=== PATIENT | male | born 1950 | race Caucasian/White ===

== ENCOUNTER → 2017-12-14 09:02 | Outpatient (CLI) | payer MEDICARE, OTHER, SELFPAY ==
[2017-12-14 10:23] LABS: Hemoglobin A1C% w Est Avg Glu 8.4 % (4.0-6.0)
[2017-12-14 10:32] LABS: BUN Creatinine Ratio 25.8 (6-22); Blood Urea Nitrogen 31 mg/dL (9-20); Calcium 10.1 mg/dL (8.4-10.2); Carbon Dioxide 29 mmol/L (22-32); Chloride 100 mmol/L (98-107); Cholesterol 173 mg/dL (140-199); Estimated Glomerular Filt Rate > 60.0 mL/min (>60); Glucose 146 mg/dL (80-110); HDL Cholesterol 44 mg/dL (40-60); HEMOLYSIS < 15 (0-50); LDL Cholesterol Calculated 85 mg/dL (<100); Potassium 4.4 mmol/L (3.4-5.1); Sodium 142 mmol/L (137-145); Triglycerides 222 mg/dL (35-150)
[2017-12-14 10:40] LABS: Creatinine Urine Random 103.9 mg/dL
[2017-12-14 10:59] LABS: Microalbumi Creatinin Ratio Ur 472.5 ug/mg CR (<30); Microalbumin Urine Random 49.1 mg/dL (0-1.6)
== END ==
PROVIDERS: PCP Family Medicine; Visit Provider Family Medicine
DX: E11.65 Type 2 diabetes mellitus with hyperglycemia (principal); I10 Essential (primary) hypertension; Z79.4 Long term (current) use of insulin
CPT/HCPCS: 36415; 80048; 80061; 82043; 82570; 83036

== ENCOUNTER → 2018-03-22 09:33 | Outpatient (CLI) | payer MEDICARE, OTHER, SELFPAY ==
[2018-03-22 10:03] LABS: Add Manual Diff / Slide Review NO; Basophils Percent Auto 0.7 % (0-2); Eosinophils Percent Auto 7.8 % (2-4); Hematocrit 44.2 % (41-53); Hemoglobin 15.2 g/dL (13.5-17.5); Lymphocytes Percent Auto 31.1 % (25-40); Mean Corpuscular HGB Conc 34.4 % (30-36); Mean Corpuscular Hemoglobin 31.2 PG (26-34); Mean Corpuscular Volume 90.8 fL (80-100); Monocytes Percent Auto 9.8 % (3-14); Neutrophils Absolute Auto 3000 /uL (3000-5900); Neutrophils Percent Auto 50.6 % (50-75); Platelet Count 130 X10^3/uL (150-400); Red Blood Cell Count 4.87 X10^6/uL (4.5-5.9); Red Cell Distribution Width 13.2 % (11.6-14.8); White Blood Cell Count 5.8 X10^3/uL (4.5-11.0)
[2018-03-22 10:39] LABS: Alanine Aminotransferase 53 IU/L (21-72); Albumin 4.3 g/dL (3.5-5.0); Albumin Globulin Ratio 1.4 (1.0-2.8); Alkaline Phosphatase 90 U/L (38-126); Aspartate Aminotransferase 36 IU/L (17-59); Blood Urea Nitrogen 20 mg/dL (9-20); Calcium 9.9 mg/dL (8.4-10.2); Carbon Dioxide 30 mmol/L (22-32); Chloride 105 mmol/L (98-107); Cholesterol 145 mg/dL (140-199); Estimated Glomerular Filt Rate > 60.0 mL/min (>60); Globulin 3.1 g/dL (1.7-4.1); Glucose 138 mg/dL (80-110); HDL Cholesterol 41 mg/dL (40-60); HEMOLYSIS < 15 (0-50); LDL Cholesterol Calculated 60 mg/dL (<100); Potassium 4.9 mmol/L (3.4-5.1); Sodium 145 mmol/L (137-145); Total Protein 7.4 g/dL (6.3-8.2); Triglycerides 222 mg/dL (35-150)
[2018-03-22 10:40] LABS: Creatinine Urine Random 106.7 mg/dL
[2018-03-22 11:13] LABS: Microalbumi Creatinin Ratio Ur 918.4 ug/mg CR (<30)
== END ==
PROVIDERS: PCP Family Medicine; Visit Provider Family Medicine
DX: E11.65 Type 2 diabetes mellitus with hyperglycemia (principal); I10 Essential (primary) hypertension; Z79.4 Long term (current) use of insulin
CPT/HCPCS: 36415; 80053; 80061; 82043; 82570; 83036; 85025

== ENCOUNTER → 2018-07-01 13:24 | Outpatient (CLI) | payer MEDICARE, OTHER, SELFPAY ==
[2018-07-01 13:56] LABS: Hemoglobin A1C% w Est Avg Glu 9.3 % (4.0-6.0)
== END ==
PROVIDERS: PCP Family Medicine; Visit Provider Family Medicine
DX: E11.65 Type 2 diabetes mellitus with hyperglycemia (principal); Z79.4 Long term (current) use of insulin
CPT/HCPCS: 36415; 83036

== ENCOUNTER → 2018-09-21 11:05 | Outpatient (CLI) | payer MEDICARE, OTHER, SELFPAY ==
[2018-09-21 12:01] LABS: Hemoglobin A1C% w Est Avg Glu 7.2 % (4.0-6.0)
== END ==
PROVIDERS: PCP Family Medicine; Visit Provider Family Medicine
DX: E11.65 Type 2 diabetes mellitus with hyperglycemia (principal); Z79.4 Long term (current) use of insulin
CPT/HCPCS: 36415; 83036

== ENCOUNTER → 2018-12-17 09:04 | Outpatient (CLI) | payer MEDICARE, OTHER, SELFPAY ==
[2018-12-17 10:37] LABS: BUN Creatinine Ratio 20.9 (6-22); Blood Urea Nitrogen 23 mg/dL (9-20); Calcium 9.7 mg/dL (8.4-10.2); Carbon Dioxide 28 mmol/L (22-32); Chloride 105 mmol/L (98-107); Cholesterol 149 mg/dL (140-199); Estimated Glomerular Filt Rate > 60.0 mL/min (>60); Glucose 161 mg/dL (80-110); HDL Cholesterol 35 mg/dL (40-60); HEMOLYSIS < 15 (0-50); LDL Cholesterol Calculated 60 mg/dL (<100); Potassium 4.6 mmol/L (3.4-5.1); Sodium 141 mmol/L (137-145); Triglycerides 270 mg/dL (35-150)
== END ==
PROVIDERS: PCP Family Medicine; Visit Provider Family Medicine
DX: E11.65 Type 2 diabetes mellitus with hyperglycemia (principal); Z79.4 Long term (current) use of insulin
CPT/HCPCS: 36415; 80048; 80061; 83036

== ENCOUNTER → 2019-04-15 11:17 | Outpatient (CLI) | payer MEDICARE, OTHER, SELFPAY ==
[2019-04-15 12:24] LABS: Hemoglobin A1C% w Est Avg Glu 8.4 % (4.0-6.0)
[2019-04-15 15:09] LABS: Creatinine Urine Random 80.9 mg/dL
[2019-04-15 15:59] LABS: Microalbumin Urine Random 166.5 mg/dL (0-1.6)
== END ==
PROVIDERS: PCP Family Medicine; Visit Provider Family Medicine
DX: E11.65 Type 2 diabetes mellitus with hyperglycemia (principal); Z79.4 Long term (current) use of insulin; I10 Essential (primary) hypertension
CPT/HCPCS: 36415; 82043; 82570; 83036

== ENCOUNTER → 2019-07-08 09:55 | Outpatient (CLI) | payer MEDICARE, OTHER, SELFPAY ==
[2019-07-08 10:32] LABS: Hemoglobin A1C% w Est Avg Glu 7.8 % (4.0-6.0)
[2019-07-08 11:00] LABS: Alanine Aminotransferase 45 IU/L (<50); Albumin 4.2 g/dL (3.5-5.0); Albumin Globulin Ratio 1.4 (1.0-2.8); Alkaline Phosphatase 89 U/L (38-126); Aspartate Aminotransferase 38 IU/L (17-59); BUN Creatinine Ratio 17.9 (6-22); Bilirubin Total 0.8 mg/dL (0.2-1.3); Blood Urea Nitrogen 25 mg/dL (9-20); Calcium 10.1 mg/dL (8.4-10.2); Carbon Dioxide 30 mmol/L (22-32); Chloride 101 mmol/L (98-107); Cholesterol 160 mg/dL (140-199); Estimated Glomerular Filt Rate 50.5 mL/min (>60); Glucose 117 mg/dL (80-110); HDL Cholesterol 37 mg/dL (40-60); HEMOLYSIS < 15 (0-50); LDL Cholesterol Calculated 79 mg/dL (<100); Potassium 4.2 mmol/L (3.4-5.1); Sodium 139 mmol/L (137-145); Total Protein 7.2 g/dL (6.3-8.2); Triglycerides 220 mg/dL (35-150)
[2019-07-08 11:02] LABS: Creatinine Urine Random 143.1 mg/dL
[2019-07-08 11:48] LABS: Microalbumi Creatinin Ratio Ur 1294.8 ug/mg CR (<30)
[2019-07-08 11:49] LABS: Microalbumin Urine Random 185.3 mg/dL (0-1.6)
== END ==
PROVIDERS: PCP Family Medicine; Visit Provider Family Medicine
DX: E11.65 Type 2 diabetes mellitus with hyperglycemia (principal); I10 Essential (primary) hypertension; Z79.4 Long term (current) use of insulin
CPT/HCPCS: 36415; 80053; 80061; 82043; 82570; 83036

== ENCOUNTER 2019-08-04 12:26 | Emergency (ER) | payer MEDICARE, OTHER, SELFPAY ==
[2019-08-04 12:38] VITALS: BP 188/89; PULSE 92; RESP 16; TEMP 36.3; O2SAT 98; BMI 32.8
--- NOTE | 2019-08-04 12:40 | PC.NURSE ---
report given to dr diggs , no new order at this time/
[2019-08-04 13:00] VITALS: BP 180/85; PULSE 90; RESP 23; O2SAT 94
--- NOTE | 2019-08-04 13:01 | ED_ITS ---
HPI - Neuro Symptoms/Deficit General Chief Complaint: Neuro Symptoms/Deficit Stated Complaint: Left side face dropping, lost taste. Time Seen by Provider: 08/04/19 13:01 Source: patient and family () Mode of arrival: Ambulatory Limitations: no limitations History of Present Illness HPI Narrative: This is a 68-year-old male who comes to the emergency department with complaint of facial droop of his right upper and lower face. Patient states it started 2 days ago. It has gotten slightly worse. He states that he has noticed more tearing with his right eye. He states that he has been able to talk he has been able to swallow but he notices that his face does not move properly on the right. Patient denies headache, he denies vision change. He denies any neck pain, no chest pain or shortness of breath. No nausea, no vomiting no other GI or urinary symptoms. He denies any weakness, numbness or tingling in his face or extremities. He has not had any issues with gait or movement. He does have a history of insulin dependent diabetes, he is on medication for blood pressure, cholesterol and a daily aspirin. Patient did have an excision of the left side of his face for skin cancer in the last johanny ral months but no other prior surgeries. He denies tobacco, 1 alcoholic drink monthly and no illicit. On Anticoagulants: Yes Related Data Home Medications Medication Instructions Recorded Confirmed aspirin 81 mg PO DAILY #0 03/25/17 08/04/19 insulin degludec 200 unit/mL (3 155 unit SUBCUT QPM package 07/12/19 08/04/19 mL) subcutaneous pen atorvastatin 40 mg PO QPM 08/04/19 08/04/19 hydrochlorothiazide 25 mg PO DAILY 08/04/19 08/04/19 Previous Rx's Medication Instructions Recorded lisinopril 40 mg tablet 40 mg PO QDAY #90 tab 09/24/18 sitagliptin 50 mg-metformin 1,000 1 tab PO BID #180 tab 09/24/18 mg tablet prednisone See Rx Instructions .ROUTE 08/04/19 .COMPLEX #45 each valacyclovir 1,000 mg PO BID #14 tab 08/04/19 Allergies Allergy/AdvReac Type Severity Reaction Status Date / Time No Known Allergies Allergy Uncoded 08/04/19 12:38 Review of Systems Review of Systems ROS Unobtainable: All systems reviewed & are unremarkable except as noted in HPI and below Patient History Medical History Chicken pox (Resolved ~1976) Diabetes mellitus (Chronic 2011) History of squamous cell carcinoma of skin (Acute) Hypertension (Chronic 2011) Mumps (Resolved ~1976) Tinnitus (Chronic 2011) Surgical History No history of previous surgery (Resolved 02/2017) Family History (Updated 12/09/17 @ 17:18 by Jaylyn Lopez) Father Hypertension High cholesterol Diabetes mellitus Social History marital status: household members: spouse pets and animals: Yes education level: master's degree pa[place]/alevism: restorationism leisure activities: fishing other: outdoors seatbelt use: always helmet use: No water heater temp set < 120 deg: Yes working smoke detector in home: Yes fire extinguisher in home: Yes carbon monox detector in home: Yes firearms in home: Yes do you feel safe at home: Yes Smoking Status: Former smoker alcohol intake: current during the past year weight has: remained stable well-balanced diet: daily or most days daily servings fruits/ve-1 caffeine: Yes frequency: does not exercise Smoking Status: Former smoker Substance Use Type: does not use Exam Narrative Exam Narrative: GEN: well nourished, well appearing male, alert and oriented x 3, patient appears to be in mild distress. HEENT: Atraumatic, pupils are equal round reactive to light, extraocular movements are intact, nares are clear, Throat is clear without any exudates, erythema, tonsillar enlargement or uvular deviation, patient has droop of the right face and nasal labial folds. He also has decreased movement of the right forehead he is able to close his eye but does have some difficulty. No dysarthria noted. HEART: Regular rate and rhythm without murmur, clicks, rubs. LUNGS:Lungs clear to auscultation, no wheezes, rales, crackles, chest moves symmetrically ABD:bowel sounds normal, soft, non-tender, no guarding, rebound, rigidity, no masses noted, no hepatosplenomegaly :No CVA tenderness MSCL: Non-tender, no muscle atrophy, muscles strength 5/5 upper and lower extremities, full range of motion, normal gait NEURO:CN 2-12 intact, sensation normal, finger nose finger test normal, heel oneill test normal, romberg normal SKIN: No rash, no vesicles or skin changes. Initial Vital Signs Initial Vital Signs: Vital Signs Temperature 97.4 F L 08/04/19 12:38 Pulse Rate 92 H 08/04/19 12:38 Respiratory Rate 16 08/04/19 12:38 Blood Pressure 188/89 H 08/04/19 12:38 Pulse Oximetry 98 08/04/19 12:38 Scores NIH Stroke Scale Level of Conciousness: Alert, keenly responsive Ask month/age: Answers both questions correctly. Open/close eyes, close hand: Performs both tasks correctly Best gaze horizontal: Normal Visual sellers: No visual loss Facial palsy: Minor paralysis, flattened nasolabial fold, asymmetry on smiling Left arm drift: No drift for full 10 sec Right arm drift: No drift for full 10 sec Left leg drift: No drift for full 10 sec Right leg drift: No drift for full 10 sec Limb ataxia: Absent Sensory on face/arms/legs: Normal, no sensory loss Best language: No aphasia, normal Dysarthria: Normal Extinction or inattention: No abnormality Total NIH Stroke scale score: 1 Course Orders Ordered: ED Orders 08/04/19 13:19 CT head/brain wo con Stat EKG-12 Lead Stat 08/04/19 13:40 Basic Metabolic Panel Stat Complete Blood Count AUTO DIFF Stat Partial Thromboplastin Time Stat Prothrombin Time INR Stat Vital Signs Vital signs: Vital Signs - 8 hr 08/04/19 12:38 08/04/19 13:00 08/04/19 14:14 Temperature 97.4 F L Pulse Rate 92 H 90 91 H Respiratory Rate 16 23 15 Blood Pressure 188/89 H Blood Pressure [Right Arm] 180/85 H 202/93 H Pulse Oximetry 98 94 96 08/04/19 14:38 Temperature Pulse Rate 83 Respiratory Rate 15 Blood Pressure 173/85 H Blood Pressure [Right Arm] Pulse Oximetry 93 MDM - Neuro Symptoms/Deficit Lab Data Attestation: I reviewed the patient's lab results. Result diagrams: 08/04/19 13:40 08/04/19 13:40 Labs: Lab Results 02/12/1608/04/19 08/04/19 Range/Units 13:40 13:40 13:40 WBC 5.0 (4.5-11.0) X10^3/uL RBC 4.65 (4.5-5.9) X10^6/uL Hgb 14.4 (13.5-17.5) g/dL Hct 41.7 (41-53) % MCV 89.7 (80-100) fL MCH 31.1 (26-34) PG MCHC 34.6 (30-36) % RDW 13.3 (11.6-14.8) % Plt Count 131 L (150-400) X10^3/uL Neut % (Auto) 61.3 (50-75) % Lymph % (Auto) 24.5 L (25-40) % [facility] % (Auto) 9.0 (3-14) % Eos % (Auto) 4.3 H (2-4) % Baso % (Auto) 0.9 (0-2) % Neut # (Auto) 3100 (5321-9573) /uL Lymph # (Auto) 1200 (7853-9852) /uL [facility] # (Auto) 500 (0-900) /uL Eos # (Auto) 200 (0-450) /uL Baso # (Auto) 0 (0-100) /uL PT 11.6 (10.1-12.7) SECONDS INR 1.0 (0.9-1.3) APTT 33 (26.4-36.2) SECONDS Sodium 142 (137-145) mmol/L Potassium 4.2 (3.4-5.1) mmol/L Chloride 105 (98-107) mmol/L Carbon Dioxide 27 (22-32) mmol/L BUN 23 H (9-20) mg/dL Creatinine 1.30 H (0.66-1.25) mg/dL Estimated GFR 55.1 L (>60) mL/min BUN/Creatinine Ratio 17.7 (6-22) Glucose 136 H (80-110) mg/dL Calcium 9.8 (8.4-10.2) mg/dL Imaging Data CT scan - head: Radiologist's Impression: [address] [address] [address] Scan Report Signed Patient: Devyn SimmsMR#: [id number] : 2Acct:[id number] Age/Sex: 68 / MDate of Service: 08/04/19 Loc: ED Accession Number: [id number] Procedure: CT head/brain wo con Ordering Provider: Pattie Huber D.O. PROCEDURE: CT HEAD/BRAIN WO CON INDICATIONS: right facial droop upper and lower, 2 days TECHNIQUE: Noncontrast 4.5 mm thick angled axial sections acquired from the foramen magnum to the vertex, with coronal and sagittal reformats. For radiation dose reduction, the following was used: automated exposure control, adjustment of mA and/or kV according to patient size. COMPARISON: None. FINDINGS: Image quality: Excellent. CSF spaces: Basal cisterns are patent. No extra-axial fluid collections. Ventricles are mildly prominent corresponding parenchymal volume loss. Brain: No midline shift. No intracranial masses or hemorrhage. Davis-white matter interface is normal. Skull and face: Calvarium and visualized facial bones are intact, without suspicious lesions. Sinuses: Visualized sinuses and mastoids are clear. IMPRESSION: Essentially unremarkable head CT. No acute intracranial hemorrhage. Dictated by: Franklin Vizcarra M.D. on 08/04/2019 at 12:58 Approved by: Franklin Vizcarra M.D. on 08/04/2019 at 12:59 MDM Narrative Medical decision making narrative: Patient comes in with physical exam classic for a Gerard's palsy. Patient did state that he had a little bit of sensation of swelling at the beginning of June around his lips and feels like his taste is been altered slightly although he states that was in June and he can tell the difference between most things. Patient states that that he has not had any other symptoms. So he head CT as well as lab work was ordered which does not show any acute changes. After 2 days of symptoms I would expect some change to his CT he had had a stroke. Are 131. Creatinine was 1.3 was 1.4 in June. Glucose was 136. Patient's pressure was elevated here at 4 sent in the department but states typically has normal pressures at home and is elevated when he sees his primary care so I suspect he has a little bit of white coat sy ndrome. I asked him to recheck this evening at home. We also discussed that he is a diabetic he is only on long-acting insulin once daily and no short-acting insulin and that his sugars would elevate. I asked him to contact his primary care if he is noticing that they are elevating significantly for further instructions. Discharge Plan Departure Patient Disposition: Home Clinical Impression: Gerard's palsy Discharge Date/Time: 08/04/19 14:40 Activity Restrictions/Additional Instructions: Follow up with your physician in the next 3-5 days for recheck. Take antiviral every 12 hours as prescribed until gone. Take prednisone as prescribed. You may use artificial tears to the affected eye every 2 hours as needed for dryness. You may also tape your eye or place a patch overnight to assist with keeping your eye moist while you sleep. Return to the ER for fevers greater than 100.4F, new weakness, numbness or loss of sensation, difficulty with movement, inability to swallow liquids, severe headaches, new vision changes, persistent vomiting, new chest pain or shortness of breath, new skin changes or rashes or other new or concerning symptoms. Prescriptions: New prednisone 10 mg tablets,dose pack See Rx Instructions .ROUTE .COMPLEX Qty: 45 RF: 0 valacyclovir 1 gram tablet 1,000 mg PO BID Qty: 14 RF: 0 No Action Tresiba FlexTouch U-200 200 unit/mL (3 mL) insulin pen 155 unit SUBCUT QPM RF: 0 aspirin 81 MG tablet,chewable 81 mg PO DAILY Qty: 0 RF: 0 lisinopril 40 mg tablet 40 mg PO QDAY Qty: 90 RF: 3 Janumet 50-1,000 mg tablet 1 tab PO BID Qty: 180 RF: 3 atorvastatin 40 mg tablet 40 mg PO QPM RF: 0 hydrochlorothiazide 25 mg tablet 25 mg PO DAILY RF: 0 Referrals: Emely Jennings MD [Primary Care Provider] -
--- NOTE | 2019-08-04 13:19 | DI.CT.S_ITS ---
PROCEDURE: CT HEAD/BRAIN WO CON INDICATIONS: right facial droop upper and lower, 2 days TECHNIQUE: Noncontrast 4.5 mm thick angled axial sections acquired from the foramen magnum to the vertex, with coronal and sagittal reformats. For radiation dose reduction, the following was used: automated exposure control, adjustment of mA and/or kV according to patient size. COMPARISON: None. FINDINGS: Image quality: Excellent. CSF spaces: Basal cisterns are patent. No extra-axial fluid collections. Ventricles are mildly prominent corresponding parenchymal volume loss. Brain: No midline shift. No intracranial masses or hemorrhage. Davis-white matter interface is normal. Skull and face: Calvarium and visualized facial bones are intact, without suspicious lesions. Sinuses: Visualized sinuses and mastoids are clear. IMPRESSION: Essentially unremarkable head CT. No acute intracranial hemorrhage. Dictated by: Franklin Vizcarra M.D. on 08/04/2019 at 12:58 Approved by: Franklin Vizcarra M.D. on 08/04/2019 at 12:59
[2019-08-04 13:51] LABS: Add Manual Diff / Slide Review NO; Basophils Absolute Auto 0 /uL (0-100); Basophils Percent Auto 0.9 % (0-2); Eosinophils Absolute Auto 200 /uL (0-450); Eosinophils Percent Auto 4.3 % (2-4); Hematocrit 41.7 % (41-53); Hemoglobin 14.4 g/dL (13.5-17.5); Lymphocytes Absolute Auto 1200 /uL (1100-4500); Lymphocytes Percent Auto 24.5 % (25-40); Mean Corpuscular HGB Conc 34.6 % (30-36); Mean Corpuscular Hemoglobin 31.1 PG (26-34); Mean Corpuscular Volume 89.7 fL (80-100); Monocytes Absolute Auto 500 /uL (0-900); Neutrophils Absolute Auto 3100 /uL (1500-7000); Neutrophils Percent Auto 61.3 % (50-75); Platelet Count 131 X10^3/uL (150-400); Red Blood Cell Count 4.65 X10^6/uL (4.5-5.9); Red Cell Distribution Width 13.3 % (11.6-14.8)
[2019-08-04 13:57] LABS: Prothrombin Time 11.6 SECONDS (10.1-12.7)
[2019-08-04 13:59] LABS: PTT Partial Thromboplastin Tim 33 SECONDS (26.4-36.2)
[2019-08-04 14:01] LABS: BUN Creatinine Ratio 17.7 (6-22); Blood Urea Nitrogen 23 mg/dL (9-20); Calcium 9.8 mg/dL (8.4-10.2); Carbon Dioxide 27 mmol/L (22-32); Chloride 105 mmol/L (98-107); Estimated Glomerular Filt Rate 55.1 mL/min (>60); Glucose 136 mg/dL (80-110); HEMOLYSIS < 15 (0-50); Potassium 4.2 mmol/L (3.4-5.1); Sodium 142 mmol/L (137-145)
[2019-08-04 14:14] VITALS: BP 202/93; PULSE 91; RESP 15; O2SAT 96
[2019-08-04 14:38] VITALS: BP 173/85; PULSE 83; RESP 15; O2SAT 93
== END 2019-08-04 14:40 | disposition home or self-care (01) ==
PROVIDERS: Emergency Provider Emergency Medicine; PCP Family Medicine
DX: G51.0 Bell's palsy (principal); E11.8 Type 2 diabetes mellitus with unspecified complications; Z79.4 Long term (current) use of insulin
CPT/HCPCS: 36415; 70450; 80048; 85025; 85610; 85730; 99284

== ENCOUNTER → 2019-12-01 13:27 | Outpatient (CLI) | payer MEDICARE, OTHER, SELFPAY ==
[2019-12-01 15:01] LABS: Hemoglobin A1C% w Est Avg Glu 8.1 % (4.0-6.0)
[2019-12-01 15:42] LABS: BUN Creatinine Ratio 17.1 (6-22); Blood Urea Nitrogen 24 mg/dL (9-20); Calcium 9.9 mg/dL (8.4-10.2); Carbon Dioxide 27 mmol/L (22-32); Chloride 107 mmol/L (98-107); Estimated Glomerular Filt Rate 50.4 mL/min (>60); Glucose 192 mg/dL (80-110); HEMOLYSIS < 15 (0-50); Potassium 4.8 mmol/L (3.4-5.1); Sodium 139 mmol/L (137-145)
== END ==
PROVIDERS: PCP Family Medicine; Referring Provider Family Medicine; Visit Provider Family Medicine
DX: E11.65 Type 2 diabetes mellitus with hyperglycemia (principal); Z79.4 Long term (current) use of insulin
CPT/HCPCS: 36415; 80048; 83036

== ENCOUNTER → 2020-03-29 10:43 | Outpatient (CLI) | payer MEDICARE, OTHER, SELFPAY ==
[2020-03-29 11:34] LABS: Hemoglobin A1C% w Est Avg Glu 6.9 % (4.0-6.0)
[2020-03-29 12:24] LABS: BUN Creatinine Ratio 24.7 (6-22); Blood Urea Nitrogen 36 mg/dL (9-20); Calcium 9.5 mg/dL (8.4-10.2); Carbon Dioxide 30 mmol/L (22-32); Chloride 106 mmol/L (98-107); Glucose 97 mg/dL (80-110); HEMOLYSIS < 15 (0-50); Potassium 4.6 mmol/L (3.4-5.1); Sodium 141 mmol/L (137-145)
== END ==
PROVIDERS: PCP Family Medicine; Referring Provider Family Medicine; Visit Provider Family Medicine
DX: E11.65 Type 2 diabetes mellitus with hyperglycemia (principal); Z79.4 Long term (current) use of insulin
CPT/HCPCS: 36415; 80048; 83036

== ENCOUNTER → 2020-04-02 13:58 | Outpatient (CLI) | payer MEDICARE, OTHER, SELFPAY ==
[2020-04-02 18:15] LABS: Microalbumi Creatinin Ratio Ur 2601.1 ug/mg CR (<30)
== END ==
PROVIDERS: PCP Family Medicine; Referring Provider Family Medicine; Visit Provider Family Medicine
DX: E11.65 Type 2 diabetes mellitus with hyperglycemia (principal); Z79.4 Long term (current) use of insulin
CPT/HCPCS: 82043; 82570

== ENCOUNTER → 2020-06-25 10:47 | Outpatient (CLI) | payer MEDICARE, OTHER, SELFPAY ==
[2020-06-25 11:47] LABS: Add Manual Diff / Slide Review NO; Basophils Absolute Auto 100 /uL (0-100); Eosinophils Absolute Auto 400 /uL (0-450); Eosinophils Percent Auto 7.7 % (2-4); Hematocrit 39.1 % (41-53); Hemoglobin 13.2 g/dL (13.5-17.5); Lymphocytes Absolute Auto 1500 /uL (1100-4500); Lymphocytes Percent Auto 25.3 % (25-40); Mean Corpuscular HGB Conc 33.8 % (30-36); Mean Corpuscular Hemoglobin 30.5 PG (26-34); Mean Corpuscular Volume 90.2 fL (80-100); Monocytes Absolute Auto 500 /uL (0-900); Monocytes Percent Auto 9.3 % (3-14); Neutrophils Absolute Auto 3300 /uL (1500-7000); Neutrophils Percent Auto 56.7 % (50-75); Platelet Count 157 X10^3/uL (150-400); Red Blood Cell Count 4.34 X10^6/uL (4.5-5.9); Red Cell Distribution Width 13.2 % (11.6-14.8); White Blood Cell Count 5.8 X10^3/uL (4.5-11.0)
[2020-06-25 12:06] LABS: Hemoglobin A1C% w Est Avg Glu 6.7 % (4.0-6.0)
[2020-06-25 12:36] LABS: Thyroid Stimulating Hormone 2.54 uIU/mL (0.47-4.68)
[2020-06-25 16:03] LABS: Microalbumi Creatinin Ratio Ur 1241.4 ug/mg CR (<30); Microalbumin Urine Random 152.7 mg/dL (0-1.6)
[2020-06-25 16:48] LABS: Alanine Aminotransferase 44 IU/L (<50); Albumin Globulin Ratio 1.2 (1.0-2.8); Alkaline Phosphatase 113 U/L (38-126); Aspartate Aminotransferase 40 IU/L (17-59); BUN Creatinine Ratio 17.9 (6-22); Bilirubin Total 0.6 mg/dL (0.2-1.3); Blood Urea Nitrogen 28 mg/dL (9-20); Calcium 9.7 mg/dL (8.4-10.2); Carbon Dioxide 28 mmol/L (22-32); Chloride 107 mmol/L (98-107); Cholesterol 135 mg/dL (140-199); Estimated Glomerular Filt Rate 44.5 mL/min (>60); Globulin 3.4 g/dL (1.7-4.1); Glucose 113 mg/dL (80-110); HDL Cholesterol 32 mg/dL (40-60); HEMOLYSIS < 15 (0-50); LDL Cholesterol Calculated 61 mg/dL (<100); Potassium 4.3 mmol/L (3.4-5.1); Sodium 139 mmol/L (137-145); Total Protein 7.4 g/dL (6.3-8.2); Triglycerides 212 mg/dL (35-150)
[2020-06-25 17:18] LABS: Prostate Specific Antigen Scrn 0.505 ng/mL (0.1-4.0)
== END ==
PROVIDERS: PCP Family Medicine; Referring Provider Family Medicine; Visit Provider Family Medicine
DX: E11.65 Type 2 diabetes mellitus with hyperglycemia (principal); I10 Essential (primary) hypertension; N18.9 Chronic kidney disease, unspecified; Z12.5 Encounter for screening for malignant neoplasm of prostate; Z13.29 Encounter for screening for other suspected endocrine disorder; Z79.4 Long term (current) use of insulin
CPT/HCPCS: 36415; 80053; 80061; 82043; 82570; 83036; 84443; 85025; G0103

== ENCOUNTER → 2020-07-24 12:54 | Outpatient (CLI) | payer MEDICARE, OTHER, SELFPAY ==
[2020-07-24] MEDS: COVID-19 VACC #1, MRNA(MOD) 100 MCG/0.5 ML VIAL IM (12:59)
== END ==
PROVIDERS: PCP Family Medicine; Visit Provider Internal Medicine
DX: Z23 Encounter for immunization (principal)
CPT/HCPCS: 0011A; 91301

== ENCOUNTER → 2020-08-21 13:03 | Outpatient (CLI) | payer MEDICARE, OTHER, SELFPAY ==
[2020-08-21] MEDS: COVID-19 VACC #2, MRNA(MOD) 100 MCG/0.5 ML VIAL IM (13:11)
== END ==
PROVIDERS: PCP Family Medicine; Visit Provider Internal Medicine
DX: Z23 Encounter for immunization (principal)
CPT/HCPCS: 0012A; 91301

== ENCOUNTER → 2020-09-26 09:47 | Outpatient (CLI) | payer MEDICARE, OTHER, SELFPAY ==
[2020-09-26 10:39] LABS: Hemoglobin A1C% w Est Avg Glu 6.7 % (4.0-6.0)
[2020-09-26 10:45] LABS: Alanine Aminotransferase 42 IU/L (<50); Albumin Globulin Ratio 1.3 (1.0-2.8); Alkaline Phosphatase 102 U/L (38-126); Aspartate Aminotransferase 37 IU/L (17-59); BUN Creatinine Ratio 18.8 (6-22); Bilirubin Total 0.5 mg/dL (0.2-1.3); Blood Urea Nitrogen 29 mg/dL (9-20); Calcium 9.7 mg/dL (8.4-10.2); Carbon Dioxide 27 mmol/L (22-32); Chloride 108 mmol/L (98-107); Glucose 132 mg/dL (80-110); HEMOLYSIS < 15 (0-50); Phosphorous 3.3 mg/dL (2.3-3.7); Sodium 141 mmol/L (137-145)
[2020-09-27 12:09] LABS: Calcium 9.2 mg/dL (8.6-10.2); Parathyroid Hormone, Intact 44 pg/mL (15-65)
== END ==
PROVIDERS: PCP Family Medicine; Referring Provider Family Medicine; Visit Provider Family Medicine
DX: E11.65 Type 2 diabetes mellitus with hyperglycemia (principal); N18.32 Chronic kidney disease, stage 3b; Z79.4 Long term (current) use of insulin
CPT/HCPCS: 36415; 80053; 82043; 82310; 82570; 83036; 83970; 84100

== ENCOUNTER → 2020-12-25 10:57 | Outpatient (CLI) | payer MEDICARE, OTHER, SELFPAY ==
[2020-12-26 07:28] LABS: Fecal Immunochemical Test Negative (Negative)
== END ==
PROVIDERS: PCP Family Medicine; Referring Provider Family Medicine; Visit Provider Family Medicine
DX: Z12.11 Encounter for screening for malignant neoplasm of colon (principal); E11.65 Type 2 diabetes mellitus with hyperglycemia; Z79.4 Long term (current) use of insulin
CPT/HCPCS: 36415; 82274; 83036

== ENCOUNTER → 2020-12-28 11:30 | Outpatient (CLI) | payer MEDICARE, OTHER, SELFPAY ==
[2020-12-28 15:03] LABS: Creatinine Urine Random 142.3 mg/dL
[2020-12-28 15:42] LABS: Microalbumi Creatinin Ratio Ur 2213.6 ug/mg CR (<30)
== END ==
PROVIDERS: PCP Family Medicine; Visit Provider Family Medicine
DX: E11.65 Type 2 diabetes mellitus with hyperglycemia (principal); I10 Essential (primary) hypertension; N18.32 Chronic kidney disease, stage 3b; Z79.4 Long term (current) use of insulin
CPT/HCPCS: 82043; 82570

== ENCOUNTER → 2021-01-09 10:20 | Outpatient (CLI) | payer MEDICARE, OTHER, SELFPAY ==
[2021-01-09 11:20] LABS: Hemoglobin A1C% w Est Avg Glu 6.7 % (4.0-6.0)
[2021-01-09 11:23] LABS: Alanine Aminotransferase 41 IU/L (<50); Albumin 4.1 g/dL (3.5-5.0); Albumin Globulin Ratio 1.3 (1.0-2.8); Alkaline Phosphatase 120 U/L (38-126); Aspartate Aminotransferase 36 IU/L (17-59); BUN Creatinine Ratio 19.8 (6-22); Bilirubin Total 0.5 mg/dL (0.2-1.3); Blood Urea Nitrogen 34 mg/dL (9-20); Calcium 9.6 mg/dL (8.4-10.2); Carbon Dioxide 29 mmol/L (22-32); Chloride 106 mmol/L (98-107); Estimated Glomerular Filt Rate 39.6 mL/min (>60); Globulin 3.1 g/dL (1.7-4.1); Glucose 150 mg/dL (80-110); HEMOLYSIS < 15 (0-50); Potassium 4.5 mmol/L (3.4-5.1); Sodium 140 mmol/L (137-145); Total Protein 7.2 g/dL (6.3-8.2)
[2021-01-09 12:31] LABS: Creatinine Urine Random 109.1 mg/dL
[2021-01-09 20:26] LABS: Microalbumi Creatinin Ratio Ur 2648.9 ug/mg CR (<30)
== END ==
PROVIDERS: PCP Family Medicine; Referring Provider Family Medicine; Visit Provider Family Medicine
DX: N18.32 Chronic kidney disease, stage 3b (principal); E11.65 Type 2 diabetes mellitus with hyperglycemia; Z79.4 Long term (current) use of insulin; I10 Essential (primary) hypertension
CPT/HCPCS: 36415; 80053; 82043; 82570; 83036

== ENCOUNTER → 2021-01-24 15:41 | Outpatient (CLI) | payer MEDICARE, OTHER, SELFPAY | PROVIDERS: PCP Family Medicine; Visit Provider Physician Assistant | DX: T14.8XXA Other injury of unspecified body region, initial encounter (principal) | CPT/HCPCS: 87070; 87075; 87205 ==

== ENCOUNTER → 2021-03-27 10:16 | Outpatient (CLI) | payer MEDICARE, OTHER, SELFPAY ==
[2021-03-27 11:47] LABS: Hemoglobin A1C% w Est Avg Glu 6.6 % (4.0-6.0)
[2021-03-27 12:34] LABS: Creatinine Urine Random 93.4 mg/dL
[2021-03-27 15:20] LABS: Microalbumi Creatinin Ratio Ur 1280.5 ug/mg CR (<30); Microalbumin Urine Random 119.6 mg/dL (0-1.6)
== END ==
PROVIDERS: PCP Family Medicine; Referring Provider Family Medicine; Visit Provider Family Medicine
DX: E11.65 Type 2 diabetes mellitus with hyperglycemia (principal); Z79.4 Long term (current) use of insulin
CPT/HCPCS: 36415; 82043; 82570; 83036

== ENCOUNTER → 2021-06-27 11:12 | Outpatient (CLI) | payer MEDICARE, OTHER, SELFPAY ==
[2021-06-27 12:42] LABS: Hemoglobin A1C% w Est Avg Glu 7.2 % (4.0-6.0)
[2021-06-27 15:46] LABS: Creatinine Urine Random 125.3 mg/dL
[2021-06-27 16:40] LABS: Microalbumi Creatinin Ratio Ur 2649.6 ug/mg CR (<30)
== END ==
PROVIDERS: PCP Family Medicine; Referring Provider Family Medicine; Visit Provider Family Medicine
DX: E11.65 Type 2 diabetes mellitus with hyperglycemia (principal); Z79.4 Long term (current) use of insulin
CPT/HCPCS: 36415; 82043; 82570; 83036

== ENCOUNTER → 2021-10-01 10:18 | Outpatient (CLI) | payer MEDICARE, OTHER, SELFPAY ==
[2021-10-01 13:29] LABS: Hemoglobin A1C% w Est Avg Glu 6.3 % (4.0-6.0)
[2021-10-01 15:48] LABS: Creatinine Urine Random 95.2 mg/dL
[2021-10-01 16:46] LABS: Microalbumi Creatinin Ratio Ur 915.9 ug/mg CR (<30); Microalbumin Urine Random 87.2 mg/dL (0-1.6)
== END ==
PROVIDERS: PCP Family Medicine; Referring Provider Family Medicine; Visit Provider Family Medicine
DX: E11.65 Type 2 diabetes mellitus with hyperglycemia (principal); N20.0 Calculus of kidney; R30.0 Dysuria; Z79.4 Long term (current) use of insulin; N18.32 Chronic kidney disease, stage 3b
CPT/HCPCS: 36415; 82043; 82570; 83036

== ENCOUNTER → 2021-10-07 11:56 | Outpatient (CLI) | payer MEDICARE, OTHER, SELFPAY ==
[2021-10-07 12:28] LABS: Add Manual Diff / Slide Review NO; Basophils Absolute Auto 0 /uL (0-100); Basophils Percent Auto 0.7 % (0-2); Eosinophils Absolute Auto 200 /uL (0-450); Eosinophils Percent Auto 4.6 % (2-4); Hematocrit 36.9 % (41-53); Hemoglobin 12.5 g/dL (13.5-17.5); Lymphocytes Absolute Auto 1400 /uL (1100-4500); Mean Corpuscular HGB Conc 33.8 % (30-36); Mean Corpuscular Hemoglobin 30.5 PG (26-34); Mean Corpuscular Volume 90.4 fL (80-100); Monocytes Absolute Auto 500 /uL (0-900); Monocytes Percent Auto 9.9 % (3-14); Neutrophils Absolute Auto 3200 /uL (1500-7000); Neutrophils Percent Auto 58.8 % (50-75); Platelet Count 131 X10^3/uL (150-400); Red Blood Cell Count 4.08 X10^6/uL (4.5-5.9); Red Cell Distribution Width 13.4 % (11.6-14.8); White Blood Cell Count 5.4 X10^3/uL (4.5-11.0)
[2021-10-07 16:08] LABS: Vitamin D 25 Hydroxy (D3) 75.3 ng/mL (30.0-100.0)
[2021-10-08 07:49] LABS: Parathyroid Hormone Int 47 pg/mL (15-65)
[2021-10-09 16:55] LABS: Albumin 4.1 g/dL (3.5-5.0); BUN Creatinine Ratio 16.2 (6-22); Blood Urea Nitrogen 30 mg/dL (9-20); Calcium 9.3 mg/dL (8.4-10.2); Carbon Dioxide 23 mmol/L (22-32); Chloride 111 mmol/L (98-107); Estimated Glomerular Filt Rate 39 mL/min (>60); Glucose 71 mg/dL (80-110); HEMOLYSIS < 15 (0-50); Phosphorous 3.5 mg/dL (2.3-3.7); Sodium 141 mmol/L (137-145)
[2021-10-09 16:56] LABS: Potassium 6.1 mmol/L (3.4-5.1)
== END ==
PROVIDERS: PCP Family Medicine; Referring Provider Internal Medicine Nephrology; Visit Provider Internal Medicine Nephrology
DX: N18.32 Chronic kidney disease, stage 3b (principal)
CPT/HCPCS: 36415; 80069; 82306; 83970; 85025; 86430

== ENCOUNTER → 2021-10-16 10:16 | Outpatient (CLI) | payer MEDICARE, OTHER, SELFPAY ==
[2021-10-16 12:00] LABS: BUN Creatinine Ratio 20.2 (6-22); Blood Urea Nitrogen 39 mg/dL (9-20); Calcium 9.6 mg/dL (8.4-10.2); Carbon Dioxide 25 mmol/L (22-32); Chloride 110 mmol/L (98-107); Estimated Glomerular Filt Rate 37 mL/min (>60); Glucose 137 mg/dL (80-110); HEMOLYSIS < 15 (0-50); Sodium 142 mmol/L (137-145)
== END ==
PROVIDERS: PCP Family Medicine; Referring Provider Internal Medicine Nephrology; Visit Provider Internal Medicine Nephrology
DX: E87.5 Hyperkalemia (principal)
CPT/HCPCS: 36415; 80048

== ENCOUNTER → 2022-01-02 10:00 | Outpatient (CLI) | payer MEDICARE, OTHER, SELFPAY ==
[2022-01-02 11:18] LABS: Alanine Aminotransferase 31 IU/L (<50); Albumin 3.8 g/dL (3.5-5.0); Albumin Globulin Ratio 1.2 (1.0-2.8); Alkaline Phosphatase 74 U/L (38-126); Aspartate Aminotransferase 31 IU/L (17-59); BUN Creatinine Ratio 16.5 (6-22); Bilirubin Total 0.7 mg/dL (0.2-1.3); Blood Urea Nitrogen 27 mg/dL (9-20); Calcium 8.9 mg/dL (8.4-10.2); Carbon Dioxide 23 mmol/L (22-32); Chloride 111 mmol/L (98-107); Estimated Glomerular Filt Rate 45 mL/min (>60); Globulin 3.2 g/dL (1.7-4.1); Glucose 100 mg/dL (80-110); HEMOLYSIS < 15 (0-50); Phosphorous 2.9 mg/dL (2.3-3.7); Potassium 4.7 mmol/L (3.4-5.1); Sodium 141 mmol/L (137-145); Uric Acid 8.6 mg/dL (3.5-8.5)
== END ==
PROVIDERS: PCP Family Medicine; Referring Provider Internal Medicine Nephrology; Visit Provider Internal Medicine Nephrology
DX: N18.32 Chronic kidney disease, stage 3b (principal); E11.65 Type 2 diabetes mellitus with hyperglycemia; Z79.4 Long term (current) use of insulin
CPT/HCPCS: 36415; 80048; 80053; 80069; 84550

== ENCOUNTER → 2022-01-04 10:08 | Outpatient (CLI) | payer MEDICARE, OTHER, SELFPAY ==
[2022-01-04 11:04] LABS: Add Manual Diff / Slide Review NO; Basophils Absolute Auto 0 /uL (0-100); Basophils Percent Auto 0.7 % (0-2); Eosinophils Absolute Auto 300 /uL (0-450); Hematocrit 36.4 % (41-53); Hemoglobin 12.5 g/dL (13.5-17.5); Lymphocytes Absolute Auto 1400 /uL (1100-4500); Lymphocytes Percent Auto 24.2 % (25-40); Mean Corpuscular HGB Conc 34.2 % (30-36); Mean Corpuscular Hemoglobin 30.7 PG (26-34); Mean Corpuscular Volume 89.6 fL (80-100); Monocytes Absolute Auto 600 /uL (0-900); Monocytes Percent Auto 9.5 % (3-14); Neutrophils Absolute Auto 3500 /uL (1500-7000); Neutrophils Percent Auto 59.6 % (50-75); Platelet Count 143 X10^3/uL (150-400); Red Blood Cell Count 4.07 X10^6/uL (4.5-5.9); Red Cell Distribution Width 13.7 % (11.6-14.8); White Blood Cell Count 5.8 X10^3/uL (4.5-11.0)
[2022-01-04 11:13] LABS: Hemoglobin A1C% w Est Avg Glu 6.5 % (4.0-6.0)
== END ==
PROVIDERS: PCP Family Medicine; Referring Provider Family Medicine; Visit Provider Family Medicine
DX: D64.9 Anemia, unspecified (principal); E11.65 Type 2 diabetes mellitus with hyperglycemia; N18.32 Chronic kidney disease, stage 3b; Z79.4 Long term (current) use of insulin
CPT/HCPCS: 36415; 83036; 85025

== ENCOUNTER → 2022-06-28 11:13 | Outpatient (CLI) | payer MEDICARE, OTHER, SELFPAY ==
[2022-06-28 11:45] LABS: Add Manual Diff / Slide Review NO; Basophils Absolute Auto 0 /uL (0-100); Basophils Percent Auto 0.6 % (0-2); Eosinophils Absolute Auto 300 /uL (0-450); Hemoglobin 12.8 g/dL (13.5-17.5); Lymphocytes Absolute Auto 1500 /uL (1100-4500); Mean Corpuscular HGB Conc 33.8 % (30-36); Mean Corpuscular Hemoglobin 30.4 PG (26-34); Monocytes Absolute Auto 500 /uL (0-900); Monocytes Percent Auto 8.5 % (3-14); Neutrophils Absolute Auto 3400 /uL (1500-7000); Neutrophils Percent Auto 59.9 % (50-75); Platelet Count 137 X10^3/uL (150-400); Red Blood Cell Count 4.22 X10^6/uL (4.5-5.9); Red Cell Distribution Width 13.8 % (11.6-14.8); White Blood Cell Count 5.7 X10^3/uL (4.5-11.0)
[2022-06-28 11:54] LABS: Cholesterol 131 mg/dL (140-199); HDL Cholesterol 32 mg/dL (40-60); LDL Cholesterol Calculated 57 mg/dL (<100); Triglycerides 211 mg/dL (35-150)
[2022-06-28 12:02] LABS: Hemoglobin A1C% w Est Avg Glu 6.7 % (4.0-6.0)
[2022-06-28 13:54] LABS: Creatinine Urine Random 110.4 mg/dL
[2022-06-28 13:55] LABS: Microalbumi Creatinin Ratio Ur 2173.9 ug/mg CR (<30)
== END ==
PROVIDERS: PCP Family Medicine; Referring Provider Family Medicine; Visit Provider Family Medicine
DX: E11.65 Type 2 diabetes mellitus with hyperglycemia (principal); E11.69 Type 2 diabetes mellitus with other specified complication; I10 Essential (primary) hypertension; N18.9 Chronic kidney disease, unspecified; Z79.4 Long term (current) use of insulin
CPT/HCPCS: 36415; 80061; 82043; 82570; 83036; 85025

== ENCOUNTER → 2022-10-04 11:12 | Outpatient (CLI) | payer MEDICARE, OTHER, SELFPAY ==
[2022-10-04 14:07] LABS: Creatinine Urine Random 103.9 mg/dL
[2022-10-04 14:31] LABS: Microalbumi Creatinin Ratio Ur 753.6 ug/mg CR (<30); Microalbumin Urine Random 78.3 mg/dL (0-1.6)
[2022-10-05 07:47] LABS: Labcorp Hemoglobin (Hb) A1c 6.4 % (4.8-5.6)
== END ==
PROVIDERS: PCP Family Medicine; Referring Provider Family Medicine; Visit Provider Family Medicine
DX: E11.65 Type 2 diabetes mellitus with hyperglycemia (principal); I10 Essential (primary) hypertension; N18.32 Chronic kidney disease, stage 3b; Z79.4 Long term (current) use of insulin
CPT/HCPCS: 36415; 82043; 82570; 83036

== ENCOUNTER → 2022-10-18 08:00 | Outpatient (CLI) | payer MEDICARE, OTHER, SELFPAY ==
[2022-10-18 08:46] LABS: Add Manual Diff / Slide Review NO; Basophils Absolute Auto 0 /uL (0-100); Basophils Percent Auto 0.6 % (0-2); Eosinophils Absolute Auto 300 /uL (0-450); Eosinophils Percent Auto 5.1 % (2-4); Hematocrit 36.9 % (41-53); Hemoglobin 12.3 g/dL (13.5-17.5); Lymphocytes Absolute Auto 1300 /uL (1100-4500); Lymphocytes Percent Auto 23.4 % (25-40); Mean Corpuscular HGB Conc 33.4 % (30-36); Mean Corpuscular Volume 90.1 fL (80-100); Monocytes Absolute Auto 500 /uL (0-900); Monocytes Percent Auto 9.8 % (3-14); Neutrophils Absolute Auto 3300 /uL (1500-7000); Neutrophils Percent Auto 61.1 % (50-75); Platelet Count 122 X10^3/uL (150-400); Red Blood Cell Count 4.09 X10^6/uL (4.5-5.9); Red Cell Distribution Width 13.6 % (11.6-14.8); White Blood Cell Count 5.4 X10^3/uL (4.5-11.0)
[2022-10-18 09:19] LABS: Alanine Aminotransferase 30 IU/L (<50); Albumin 3.8 g/dL (3.5-5.0); Albumin Globulin Ratio 1.2 (1.0-2.8); Alkaline Phosphatase 73 U/L (38-126); Aspartate Aminotransferase 26 IU/L (17-59); BUN Creatinine Ratio 17.2 (6-22); Bilirubin Total 0.9 mg/dL (0.2-1.3); Blood Urea Nitrogen 36 mg/dL (9-20); Calcium 9.1 mg/dL (8.4-10.2); Carbon Dioxide 26 mmol/L (22-32); Chloride 107 mmol/L (98-107); Estimated Glomerular Filt Rate 33 mL/min (>60); Globulin 3.1 g/dL (1.7-4.1); Glucose 92 mg/dL (80-110); HEMOLYSIS < 15 (0-50); Potassium 4.6 mmol/L (3.4-5.1); Sodium 140 mmol/L (137-145); Total Protein 6.9 g/dL (6.3-8.2)
[2022-10-27 06:12] LABS: Metanephrine,Plasma 31.7 pg/mL (0.0-88.0)
[2022-10-27 19:07] LABS: Aldosterone/Renin Activity Rat <1.4 (0.0-30.0); Plama Renin, LC/MS/MS 0.696 ng/mL/hr (0.167-5.380)
== END ==
PROVIDERS: PCP Family Medicine; Referring Provider Internal Medicine Nephrology; Visit Provider Internal Medicine Nephrology
DX: N18.32 Chronic kidney disease, stage 3b (principal)
CPT/HCPCS: 36415; 80053; 82088; 83835; 84244; 85025

== ENCOUNTER → 2022-12-29 09:03 | Outpatient (CLI) | payer MEDICARE, OTHER, SELFPAY ==
[2022-12-29 09:51] LABS: Add Manual Diff / Slide Review NO; Basophils Absolute Auto 0 /uL (0-100); Basophils Percent Auto 0.4 % (0-2); Eosinophils Absolute Auto 300 /uL (0-450); Eosinophils Percent Auto 5.5 % (2-4); Hematocrit 34.7 % (41-53); Hemoglobin 11.7 g/dL (13.5-17.5); Lymphocytes Absolute Auto 1400 /uL (1100-4500); Lymphocytes Percent Auto 23.6 % (25-40); Mean Corpuscular HGB Conc 33.6 % (30-36); Mean Corpuscular Hemoglobin 30.5 PG (26-34); Mean Corpuscular Volume 90.8 fL (80-100); Monocytes Absolute Auto 600 /uL (0-900); Monocytes Percent Auto 9.7 % (3-14); Neutrophils Absolute Auto 3600 /uL (1500-7000); Neutrophils Percent Auto 60.8 % (50-75); Platelet Count 132 X10^3/uL (150-400); Red Blood Cell Count 3.82 X10^6/uL (4.5-5.9); Red Cell Distribution Width 13.7 % (11.6-14.8); White Blood Cell Count 5.9 X10^3/uL (4.5-11.0)
[2022-12-29 10:05] LABS: Albumin 3.7 g/dL (3.5-5.0); BUN Creatinine Ratio 17.1 (6-22); Blood Urea Nitrogen 37 mg/dL (9-20); Calcium 9.2 mg/dL (8.4-10.2); Carbon Dioxide 24 mmol/L (22-32); Chloride 109 mmol/L (98-107); Estimated Glomerular Filt Rate 32 mL/min (>60); Glucose 83 mg/dL (80-110); HEMOLYSIS < 15 (0-50); Phosphorous 3.2 mg/dL (2.3-3.7); Potassium 4.6 mmol/L (3.4-5.1); Sodium 140 mmol/L (137-145)
[2022-12-29 12:30] LABS: Creatinine Urine Random 124.3 mg/dL
[2022-12-29 13:07] LABS: Microalbumi Creatinin Ratio Ur 599.3 ug/mg CR (<30); Microalbumin Urine Random 74.5 mg/dL (0-1.6)
[2022-12-30 06:22] LABS: x Labcorp Estim. Avg Glu (eAG) 148 mg/dL (.); x Labcorp Hemoglobin A1c 6.8 % (4.8-5.6)
[2022-12-31 11:12] LABS: HEMOLYSIS < 15 (0-50); Iron 63 ug/dL (49-181)
[2022-12-31 11:24] LABS: Percent Iron Saturation 23 % (20-50); Total Iron Binding Capacity 276 ug/dL (261-462); Transferrin 176 mg/dL (206-381)
[2022-12-31 11:49] LABS: Ferritin 129 ng/mL (18-464)
[2022-12-31 11:54] LABS: Calcium 9.4 mg/dL (8.6-10.2); Parathyroid Hormone, Intact 50 pg/mL (15-65)
== END ==
PROVIDERS: PCP Family Medicine; Referring Provider Family Medicine; Visit Provider Family Medicine
DX: E11.65 Type 2 diabetes mellitus with hyperglycemia (principal); N18.32 Chronic kidney disease, stage 3b; I10 Essential (primary) hypertension; Z79.4 Long term (current) use of insulin; E11.9 Type 2 diabetes mellitus without complications
CPT/HCPCS: 36415; 80069; 82043; 82310; 82570; 82728; 83036; 83540; 83550; 83970; 85025

== ENCOUNTER → 2023-01-14 13:39 | Outpatient (CLI) | payer MEDICARE, OTHER, SELFPAY ==
[2023-01-15 07:42] LABS: Fecal Immunochemical Test Negative (Negative)
== END ==
PROVIDERS: PCP Family Medicine; Referring Provider Family Medicine; Visit Provider Family Medicine
DX: Z12.11 Encounter for screening for malignant neoplasm of colon (principal)
CPT/HCPCS: 82274

== ENCOUNTER → 2023-03-28 10:27 | Outpatient (CLI) | payer MEDICARE, OTHER, SELFPAY ==
[2023-03-28 10:56] LABS: Add Manual Diff / Slide Review NO; Basophils Absolute Auto 100 /uL (0-100); Basophils Percent Auto 0.9 % (0-2); Eosinophils Absolute Auto 300 /uL (0-450); Eosinophils Percent Auto 5.1 % (2-4); Hematocrit 37.8 % (41-53); Hemoglobin 12.6 g/dL (13.5-17.5); Lymphocytes Absolute Auto 1500 /uL (1100-4500); Lymphocytes Percent Auto 23.3 % (25-40); Mean Corpuscular HGB Conc 33.5 % (30-36); Mean Corpuscular Hemoglobin 30.2 PG (26-34); Mean Corpuscular Volume 90.1 fL (80-100); Monocytes Absolute Auto 600 /uL (0-900); Monocytes Percent Auto 9.7 % (3-14); Neutrophils Absolute Auto 3800 /uL (1500-7000); Platelet Count 143 X10^3/uL (150-400); White Blood Cell Count 6.3 X10^3/uL (4.5-11.0)
[2023-03-28 11:03] LABS: Creatinine Urine Random 81.1 mg/dL
[2023-03-28 11:11] LABS: BUN Creatinine Ratio 15.9 (6-22); Blood Urea Nitrogen 30 mg/dL (9-20); Calcium 9.4 mg/dL (8.4-10.2); Carbon Dioxide 25 mmol/L (22-32); Chloride 109 mmol/L (98-107); Estimated Glomerular Filt Rate 37 mL/min (>60); Glucose 76 mg/dL (80-110); HEMOLYSIS < 15 (0-50); Potassium 4.2 mmol/L (3.4-5.1); Sodium 141 mmol/L (137-145)
[2023-03-28 11:15] LABS: Hemoglobin A1C% w Est Avg Glu 6.2 % (4.0-6.0)
[2023-03-28 11:36] LABS: Microalbumi Creatinin Ratio Ur 1504.3 ug/mg CR (<30)
== END ==
PROVIDERS: PCP Family Medicine; Referring Provider Family Medicine; Visit Provider Family Medicine
DX: E11.65 Type 2 diabetes mellitus with hyperglycemia (principal); Z79.4 Long term (current) use of insulin
CPT/HCPCS: 36415; 80048; 82043; 82570; 83036; 85025

== ENCOUNTER → 2023-06-13 10:13 | Outpatient (CLI) | payer MEDICARE, OTHER, SELFPAY ==
[2023-06-13 11:17] LABS: Hemoglobin A1C% w Est Avg Glu 6.7 % (4.0-6.0)
[2023-06-13 11:46] LABS: Blood Urea Nitrogen 29 mg/dL (9-20); Calcium 9.3 mg/dL (8.4-10.2); Carbon Dioxide 25 mmol/L (22-32); Chloride 106 mmol/L (98-107); Cholesterol 122 mg/dL (140-199); Estimated Glomerular Filt Rate 37 mL/min (>60); Glucose 139 mg/dL (80-110); HDL Cholesterol 33 mg/dL (40-60); HEMOLYSIS < 15 (0-50); LDL Cholesterol Calculated 45 mg/dL (<100); Potassium 4.7 mmol/L (3.4-5.1); Sodium 137 mmol/L (137-145); Triglycerides 219 mg/dL (35-150)
[2023-06-13 12:32] LABS: Microalbumin Urine Random > 114.0 mg/dL (0-1.6)
[2023-06-13 12:33] LABS: Creatinine Urine Random 104 mg/dL; Microalbumi Creatinin Ratio Ur 1096.2 ug/mg CR (<30)
== END ==
PROVIDERS: PCP Family Medicine; Referring Provider Family Medicine; Visit Provider Family Medicine
DX: E11.65 Type 2 diabetes mellitus with hyperglycemia (principal); Z79.4 Long term (current) use of insulin
CPT/HCPCS: 36415; 80048; 80061; 82043; 82570; 83036

== ENCOUNTER 2023-09-27 15:52 | Emergency (ER) | payer MEDICARE, OTHER, SELFPAY ==
[2023-09-27 15:58] VITALS: BP 200/91; PULSE 84; RESP 16; TEMP 36.4; O2SAT 97; BMI 34.2
--- NOTE | 2023-09-27 16:25 | ED_ITS ---
HPI - Dental/Oral General Chief complaint: Dental/Oral Stated complaint: tooth pain Time Seen by Provider: 09/27/23 16:24 Source: patient Mode of arrival: Ambulatory History of Present Illness HPI Narrative: Patient is 73-year-old male history of diabetes chronic kidney disease presenting today with dental pain. Reports that about 3-4 days ago he felt his crown crack his crown is now completely fallen off. He did take some Advil which seemed help with pain. He has no swelling or fever. He does not have a dentist but is going to call tomorrow. However the pain is a little bit worsened he was not able to sleep last night. Related Data Home Medications Medication Instructions Recorded Confirmed aspirin 81 mg chewable tablet 81 mg PO DAILY ##0 03/25/17 06/17/23 Previous Rx's Medication Instructions Recorded Contour Next Blood Glucose Test #90 ea 01/31/22 Strips BD Micro Fine Plus Penta Point #100 ea 11/27/22 atorvastatin 40 mg tablet 40 mg PO QPM #90 tabs 06/09/23 sitagliptin phosphate 50 See Rx Instructions .Route 06/11/23 mg-metformin 1,000 mg tablet .COMPLEX #180 tabs (Janumet) carvedilol 25 mg tablet 25 mg PO BID #180 tabs 06/17/23 hydrochlorothiazide 50 mg tablet 50 mg PO QAM #90 tabs 06/17/23 lisinopril 20 mg tablet 20 mg PO BID #180 tabs 06/17/23 insulin degludec 200 unit/mL (3 See Rx Instructions .Route 07/07/23 mL) subcutaneous pen (Tresiba .COMPLEX #72 mL FlexTouch U-200 insulin) amoxicillin 500 mg capsule 500 mg PO BID #14 caps 09/27/23 hydrocodone 5 mg-acetaminophen 325 1 tab PO Q6H PRN pain #10 tabs 09/27/23 mg tablet Allergies Allergy/AdvReac Type Severity Reaction Status Date / Time No Known Drug Allergies Allergy Verified 06/17/23 11:25 Patient History Medical History History of squamous cell carcinoma of skin Chicken pox (~1976) Diabetes mellitus (2011) Hypertension (2011) Mumps (~1976) Tinnitus (2011) Surgical History No history of previous surgery (02/2017) Family History Father Hypertension High cholesterol Diabetes mellitus Social History marital status: household members: spouse pets and animals: Yes education level: master's degree [place]/protestant: jainism leisure activities: fishing other: outdoors seatbelt use: always helmet use: No water heater temp set < 120 deg: Yes working smoke detector in home: Yes fire extinguisher in home: Yes carbon monox detector in home: Yes firearms in home: Yes do you feel safe at home: Yes Smoking Status: Former smoker alcohol intake: current during the past year weight has: remained stable well-balanced diet: daily or most days daily servings fruits/ve-1 caffeine: Yes frequency: does not exercise Smoking Status: Former smoker Substance Use Type: does not use Exam Initial Vital Signs Initial Vital Signs: Vital Signs Temperature 97.5 F L 09/27/23 15:58 Pulse Rate 84 09/27/23 15:58 Respiratory Rate 16 09/27/23 15:58 Blood Pressure 200/91 H 09/27/23 15:58 Pulse Oximetry 97 09/27/23 15:58 Oxygen Delivery Method Room Air 09/27/23 15:58 GENERAL: Alert pleasant well-appearing male CARDIOVASCULAR: peripheral pulses in tact, cap refill <2 sec RESPIRATORY: No respiratory distress, speaks in full sentences without difficulty EXTREMITIES: Normal range of motion, no clubbing or edema. Neurovascularly intact NEUROLOGICAL: Cranial nerves II through XII grossly intact. Normal gait and speech. SKIN: Warm, dry, no petechiae, no rashes or lesions. HENMT Adult Head Mouth w/Numbe Teeth: 2 1. missing crown. No abscess mildly swollen. Course Orders Ordered: Discontinued Medications Hydrocodone Bitart/Acetaminophen (Hydrocodone/Acet 5/325 Prepack) 1 bottle MISC DIRECTED ONE Stop: 09/27/23 16:51 Amoxicillin (Amoxicillin 250 Mg Prepack) 1 bottle MISC DIRECTED ONE Stop: 09/27/23 16:51 Vital Signs Vital signs: Vital Signs - 8 hr 09/27/23 15:58 Temperature 97.5 F L Pulse Rate 84 Respiratory Rate 16 Blood Pressure 200/91 H Pulse Oximetry 97 Oxygen Delivery Method Room Air MDM - Dental/Oral MDM Narrative Medical decision making narrative: Well-appearing 73-year-old male presents today with dental pain. Mild swelling but no obvious abscess. He has no swelling of his face or trismus. Do not recommend ongoing NSAIDs due to chronic kidney disease baseline creatinine 1.9. I have discussed this with him. Recommend Tylenol Torreon and antibiotics. He will call and follow-up with a dentist Discharge Plan Departure Patient Disposition: Home Clinical Impression: Pain, dental Instructions: DI for Dental Pain Activity Restrictions/Additional Instructions: *You have been diagnosed with dental pain *What to do: So nice to see you I hope that your tooth feels better soon. Call around for a dentist tomorrow *Continue to take medications as directed Amoxicillin 500 mg twice a day for 7 days Ibuprofen/Advil /leave must be careful taking with chronic kidney disease would take sparingly Tylenol 650 mg every 4-6 hours for [id number] pain Torreon 1 tablet every 6 hours only if for severe pain *Follow up with your primary care provider in 2-3 days or call [phone] *Return to ER if you should have increasing pain swelling redness or any new, worsening or concerning symptoms Prescriptions: New amoxicillin 500 mg capsule 500 mg PO BID Qty: 14 0RF hydrocodone-acetaminophen 5-325 mg tablet 1 tab PO Q6H PRN (Reason: pain) Qty: 10 0RF No Action (DME) Contour Next Blood Glucose Test Strips See Rx Instructions .Route .MEDSUPPLY Qty: 90 3RF Rx Instructions: Test strips to test 1 time daily hydrochlorothiazide 50 mg tablet 50 mg PO QAM Qty: 90 3RF carvedilol 25 mg tablet 25 mg PO BID Qty: 180 3RF Rx Instructions: must administer with a meal/food lisinopril 20 mg tablet 20 mg PO BID Qty: 180 3RF (DME) BD Micro Fine Plus Penta Point 8mm (31G) Qty: 100 3RF Rx Instructions: As directed for insulin injection once daily aspirin 81 MG tablet,chewable 81 mg PO DAILY Qty: 0 atorvastatin 40 mg tablet 40 mg PO QPM Qty: 90 3RF Janumet 50-1,000 mg tablet See Rx Instructions .ROUTE .COMPLEX Qty: 180 3RF Dose Instruction: TAKE ONE TABLET BY MOUTH TWICE DAILY Rx Instructions: TAKE ONE TABLET BY MOUTH TWICE DAILY Tresiba FlexTouch U-200 200 unit/mL (3 mL) insulin pen See Rx Instructions .ROUTE .COMPLEX Qty: 72 0RF Dose Instruction: INJECT 156 UNIT (0.78 ML) UNDER THE SKIN EVERY EVENING. (INJECT IN ABDOMEN/THIGH/OUTER ARM, NOT TO EXCEED 80 UNITS/SINGLE INJECTION SITE; ROTATE SITES) Rx Instructions: INJECT 156 UNIT (0.78 ML) UNDER THE SKIN EVERY EVENING. (INJECT IN ABDOMEN/THIGH/OUTER ARM, NOT TO EXCEED 80 UNITS/SINGLE INJECTION SITE; ROTATE SITES) Referrals: Emely Jennings MD [Primary Care Provider] - Stand Alone Forms: Patient Portal/API
[2023-09-27] MEDS: AMOXICILLIN 250 MG PREPACK 1 BOTTLE MISC (16:58)
[2023-09-27] MEDS: HYDROCODONE/ACET 5/325 PREPACK 1 BOTTLE MISC (16:58)
== END 2023-09-27 16:56 | disposition home or self-care (01) ==
PROVIDERS: Emergency Provider Emergency Medicine; PCP Family Medicine
DX: K08.89 Other specified disorders of teeth and supporting structures (principal)
CPT/HCPCS: 99281; 99283

== ENCOUNTER → 2023-12-02 11:27 | Outpatient (CLI) | payer MEDICARE, OTHER, SELFPAY ==
[2023-12-02 17:31] LABS: Creatinine Urine Random 120.85 mg/dL
== END ==
PROVIDERS: PCP Family Medicine; Visit Provider Family Medicine
DX: E11.65 Type 2 diabetes mellitus with hyperglycemia (principal); E11.22 Type 2 diabetes mellitus with diabetic chronic kidney disease; I12.9 Hypertensive chronic kidney disease with stage 1 through stage 4 chronic kidney disease, or unspecified chronic kidney disease; N18.9 Chronic kidney disease, unspecified; N39.0 Urinary tract infection, site not specified; D64.9 Anemia, unspecified; Z79.4 Long term (current) use of insulin
CPT/HCPCS: 82043; 82570

== ENCOUNTER → 2023-12-02 11:44 | Outpatient (CLI) | payer MEDICARE, OTHER, SELFPAY ==
[2023-12-02 12:20] LABS: Add Manual Diff / Slide Review NO; Basophils Absolute Auto 100 /uL (0-100); Basophils Percent Auto 1.2 % (0-2); Eosinophils Absolute Auto 300 /uL (0-450); Eosinophils Percent Auto 4.5 % (2-4); Hematocrit 35.4 % (41-53); Hemoglobin 11.8 g/dL (13.5-17.5); Lymphocytes Absolute Auto 1400 /uL (1100-4500); Lymphocytes Percent Auto 18.6 % (25-40); Mean Corpuscular HGB Conc 33.2 % (30-36); Mean Corpuscular Hemoglobin 30.5 PG (26-34); Mean Corpuscular Volume 91.9 fL (80-100); Monocytes Absolute Auto 700 /uL (0-900); Monocytes Percent Auto 9.9 % (3-14); Neutrophils Absolute Auto 4800 /uL (1500-7000); Neutrophils Percent Auto 65.8 % (50-75); Platelet Count 184 X10^3/uL (150-400); Red Blood Cell Count 3.85 X10^6/uL (4.5-5.9); Red Cell Distribution Width 13.5 % (11.6-14.8); White Blood Cell Count 7.3 X10^3/uL (4.5-11.0)
[2023-12-02 12:33] LABS: Hemoglobin A1C% w Est Avg Glu 7.7 % (4.0-6.0)
[2023-12-02 12:46] LABS: Alanine Aminotransferase 39 IU/L (<50); Albumin 3.5 g/dL (3.5-5.0); Albumin Globulin Ratio 1.3 (1.0-2.8); Alkaline Phosphatase 116 U/L (38-126); Aspartate Aminotransferase 32 IU/L (17-59); BUN Creatinine Ratio 17.6 (6-22); Bilirubin Total 0.7 mg/dL (0.2-1.3); Blood Urea Nitrogen 46 mg/dL (9-20); Calcium 8.6 mg/dL (8.4-10.2); Carbon Dioxide 23 mmol/L (22-32); Chloride 112 mmol/L (98-107); Estimated Glomerular Filt Rate 25 mL/min (>60); Globulin 2.8 g/dL (1.7-4.1); Glucose 95 mg/dL (80-110); HEMOLYSIS < 15 (0-50); Potassium 4.8 mmol/L (3.4-5.1); Sodium 142 mmol/L (137-145); Total Protein 6.3 g/dL (6.3-8.2)
== END ==
PROVIDERS: PCP Family Medicine; Referring Provider Family Medicine; Visit Provider Family Medicine
DX: E11.65 Type 2 diabetes mellitus with hyperglycemia (principal); E11.22 Type 2 diabetes mellitus with diabetic chronic kidney disease; I12.9 Hypertensive chronic kidney disease with stage 1 through stage 4 chronic kidney disease, or unspecified chronic kidney disease; N18.9 Chronic kidney disease, unspecified; N39.0 Urinary tract infection, site not specified; D64.9 Anemia, unspecified; Z79.4 Long term (current) use of insulin
CPT/HCPCS: 36415; 80053; 82043; 82570; 83036; 85025

== ENCOUNTER → 2023-12-16 10:59 | Outpatient (CLI) | payer MEDICARE, OTHER, SELFPAY ==
--- NOTE | 2023-12-16 11:01 | DI.US.S_ITS ---
PROCEDURE: US RENAL COMPLETE INDICATIONS: chronic kidney disease TECHNIQUE: Real-time scanning was performed of the kidneys and bladder, with image documentation. COMPARISON: None. FINDINGS: Kidneys: Kidneys are normal in size. Right kidney measures 12.6 cm long; left kidney measures 12.9 cm long. Right renal cortical thickness is 1.3 cm; left renal cortical thickness is 1.3 cm. Renal cortical echotexture is normal. No hydronephrosis or nephrolithiasis. No suspicious solid mass lesions. Bladder: Urinary bladder is decompressed. No gross bladder wall mass or stones. On pre-void images, no ureteral jets are noted with color Doppler interrogation. (Of note, ureteral jets may not be detectable in up to 25% of cases due to insufficient differences in specific gravity between ureteral and bladder urine). Miscellaneous: No free pelvic fluid. IMPRESSION: 1. Normal appearing bilateral kidneys. 2. No gross abnormality is seen in decompressed urinary bladder. Dictated by: Rodri Benitez M.D. on 12/16/2023 at 16:08 Approved by: Rodri Beintez M.D. on 12/16/2023 at 16:21
== END ==
LOC: US 11:01
PROVIDERS: PCP Family Medicine; Referring Provider Family Medicine; Visit Provider Family Medicine
DX: N18.32 Chronic kidney disease, stage 3b (principal)
CPT/HCPCS: 76770

== ENCOUNTER → 2023-12-19 10:38 | Outpatient (CLI) | payer MEDICARE, OTHER, SELFPAY ==
[2023-12-19 12:09] LABS: Creatinine Urine Random 140.66 mg/dL
[2023-12-19 12:11] LABS: Alanine Aminotransferase 22 IU/L (<50); Albumin 3.8 g/dL (3.5-5.0); Albumin Globulin Ratio 1.3 (1.0-2.8); Alkaline Phosphatase 84 U/L (38-126); Aspartate Aminotransferase 25 IU/L (17-59); BUN Creatinine Ratio 14.1 (6-22); Blood Urea Nitrogen 31 mg/dL (9-20); Carbon Dioxide 23 mmol/L (22-32); Chloride 112 mmol/L (98-107); Estimated Glomerular Filt Rate 31 mL/min (>60); Globulin 2.9 g/dL (1.7-4.1); Glucose 98 mg/dL (80-110); HEMOLYSIS < 15 (0-50); Potassium 5.2 mmol/L (3.4-5.1); Sodium 139 mmol/L (137-145); Total Protein 6.7 g/dL (6.3-8.2)
[2023-12-19 13:02] LABS: Microalbumin Urine Random 125.2 mg/dL (0-1.6)
== END ==
PROVIDERS: PCP Family Medicine; Referring Provider Family Medicine; Visit Provider Family Medicine
DX: I12.9 Hypertensive chronic kidney disease with stage 1 through stage 4 chronic kidney disease, or unspecified chronic kidney disease (principal); E11.65 Type 2 diabetes mellitus with hyperglycemia; N18.32 Chronic kidney disease, stage 3b; Z79.4 Long term (current) use of insulin
CPT/HCPCS: 36415; 80053; 82043; 82570

== ENCOUNTER → 2024-02-17 10:09 | Outpatient (CLI) | payer MEDICARE, OTHER, SELFPAY ==
--- NOTE | 2024-02-17 10:11 | DI.RAD.S_ITS ---
PROCEDURE: XR LUMBAR SPINE 2-3V INDICATIONS: pain TECHNIQUE: 3 views of the lumbar spine were acquired. COMPARISON: None. FINDINGS: Bones: 5 ycf-yro-calbwht vertebrae are present. T12 has very short ribs. Minimal scoliosis noted. Anterior compression deformity of L1 with approximately 10% height loss is of unknown chronicity. Fusion of L5-S1 is noted. Severe degenerative changes of the facet joints are present. Soft tissues: Nonobstructive bowel gas pattern. Possible calcification projects over the right kidney. IMPRESSION: 1. Anterior compression deformity of L1 vertebral body with approximately 10% height loss is of unknown chronicity. 2. Possible right renal stone Dictated by: Pb Mason M.D. on 02/17/2024 at 15:00 Approved by: Pb Mason M.D. on 02/17/2024 at 15:04
--- NOTE | 2024-02-17 10:11 | DI.RAD.S_ITS ---
PROCEDURE: XR THORACIC SPINE 3V INDICATIONS: pain TECHNIQUE: 3 views of the thoracic spine were acquired. COMPARISON: None. FINDINGS: Bones: 11 versus 12 ribs are noted. Minimal anterior compression deformity of lower thoracic versus upper lumbar vertebral body with approximately 10% height loss anteriorly of unknown chronicity, seen on the lateral view. Diffuse degenerative disc disease of the visualized spine is also identified with bridging osteophytes, correlate with DISH. Soft tissues: Unremarkable IMPRESSION: 1. Approximately 10% height loss anteriorly of lower thoracic versus upper lumbar vertebral body of unknown chronicity. 2. Diffuse degenerative disc disease 3. Suggestion of DISH of the spine Dictated by: Pb Mason M.D. on 02/17/2024 at 14:56 Approved by: Pb Mason M.D. on 02/17/2024 at 15:00
[2024-02-17 12:30] LABS: Alanine Aminotransferase 32 IU/L (<50); Albumin 3.7 g/dL (3.5-5.0); Albumin Globulin Ratio 1.2 (1.0-2.8); Alkaline Phosphatase 117 U/L (38-126); Aspartate Aminotransferase 27 IU/L (17-59); BUN Creatinine Ratio 14.7 (6-22); Bilirubin Total 0.7 mg/dL (0.2-1.3); Blood Urea Nitrogen 32 mg/dL (9-20); Carbon Dioxide 22 mmol/L (22-32); Chloride 107 mmol/L (98-107); Estimated Glomerular Filt Rate 31 mL/min (>60); Globulin 3.1 g/dL (1.7-4.1); Glucose 133 mg/dL (80-110); HEMOLYSIS < 15 (0-50); Potassium 4.8 mmol/L (3.4-5.1); Sodium 138 mmol/L (137-145); Total Protein 6.8 g/dL (6.3-8.2)
[2024-02-17 13:30] LABS: Creatinine Urine Random 92.78 mg/dL
[2024-02-17 13:49] LABS: Microalbumin Urine Random 70.3 mg/dL (0-1.6)
[2024-02-17 22:07] LABS: Hemoglobin A1C% w Est Avg Glu 6.7 % (4.0-6.0)
== END ==
PROVIDERS: PCP Family Medicine; Referring Provider Family Medicine; Visit Provider Family Medicine
DX: E11.65 Type 2 diabetes mellitus with hyperglycemia (principal); R52 Pain, unspecified; Z79.4 Long term (current) use of insulin; M51.34 Other intervertebral disc degeneration, thoracic region; M51.86 Other intervertebral disc disorders, lumbar region
CPT/HCPCS: 36415; 72072; 72100; 80053; 82043; 82570; 83036

== ENCOUNTER → 2024-03-08 16:27 | Outpatient (CLI) | payer MEDICARE, OTHER, SELFPAY ==
--- NOTE | 2024-03-08 16:28 | DI.US.S_ITS ---
PROCEDURE: US RENAL COMPLETE INDICATIONS: possible kidney stone TECHNIQUE: Real-time scanning was performed of the kidneys and bladder, with image documentation. COMPARISON: [facility], , US RENAL COMPLETE, 12/16/2023, 11:19. FINDINGS: Kidneys: Kidneys are normal in size. Right kidney measures 13.7 cm long; left kidney measures 13.2 cm long. Right renal cortical thickness is 1.8 cm; left renal cortical thickness is 2.0 cm. Renal cortical echotexture is normal. No hydronephrosis or nephrolithiasis. No suspicious solid mass lesions. Bladder: Pre-void bladder volume is 127 mL. Post-void residual is 5 mL. Pre-void images demonstrate no intraluminal masses or stones. On pre-void images, bilateral ureteral jets are noted with color Doppler interrogation. (Of note, ureteral jets may not be detectable in up to 25% of cases due to insufficient differences in specific gravity between ureteral and bladder urine). Miscellaneous: No free pelvic fluid. Mild prominence of the gallbladder with sludge and stones. No definitive wall thickening. IMPRESSION: No renal obstruction. No stones are identified. Incidental note of cholelithiasis. Dictated by: Ale Jackson M.D. on 03/09/2024 at 12:36 Approved by: Ale Jackson M.D. on 03/09/2024 at 12:37
== END ==
PROVIDERS: PCP Family Medicine; Referring Provider Family Medicine; Visit Provider Family Medicine
DX: N18.9 Chronic kidney disease, unspecified (principal); K80.20 Calculus of gallbladder without cholecystitis without obstruction; N20.0 Calculus of kidney; E11.65 Type 2 diabetes mellitus with hyperglycemia; Z79.4 Long term (current) use of insulin
CPT/HCPCS: 76770

== ENCOUNTER → 2024-03-31 15:41 | Outpatient (CLI) | payer MEDICARE, OTHER, SELFPAY ==
--- NOTE | 2024-03-31 15:43 | DI.MRI.S_ITS ---
PROCEDURE: MR ABDOMEN WO CON INDICATIONS: abd pain, MRCP TECHNIQUE: Coronal HASTE through the abdomen, axial 2-D FLASH in- and [id number]-dcyfo, and breath-hold T2 FSE with fat saturation through the biliary system and pancreas. Oblique coronal and axial thin-slice HASTE, radial thick-slab HASTE centered on the extrahepatic bile ducts. Intravenous secretin: Not requested. COMPARISON: [facility], , RENAL COMPLETE, 03/08/2024, 16:52. FINDINGS: Image quality: Diagnostic. Gallbladder: Distended. Multiple small layering gallstones. No pericholecystic fluid. Biliary ducts: No biliary dilation. No choledocholithiasis. Pancreas: No ductal dilation. No peripancreatic fluid collection. OTHER: Lung bases: Unremarkable. Liver: No solid mass. Spleen: Size is within normal limits. Adrenal Glands: No adrenal nodules. Kidneys and Ureters: No hydronephrosis. No solid mass. No complex renal cystic lesion which requires follow up. Stomach and Bowel: Normal colonic caliber, without significant wall thickening. Normal appendix. No dilated loops of bowel seen. Peritoneum: No abnormal intraperitoneal fluid. No free air. Ventral Wall: No hernia. Abdominal Nodes: No retroperitoneal or mesenteric adenopathy by size criteria. Vessels: Aorta and inferior vena cava are normal in size. Bones: No aggressive osseous abnormality. IMPRESSION: 1. Distended gallbladder with small layering gallstones. No pericholecystic fluid to suggest acute cholecystitis. 2. No choledocholithiasis. No biliary ductal dilatation. 3. No pancreatic ductal dilatation. No peripancreatic fluid collection. Dictated by: Ander Holguin M.D. on 03/31/2024 at 16:51 Approved by: Ander Holguin M.D. on 03/31/2024 at 16:57
== END ==
PROVIDERS: PCP Family Medicine; Referring Provider Family Medicine; Visit Provider Family Medicine
DX: K80.20 Calculus of gallbladder without cholecystitis without obstruction (principal)
CPT/HCPCS: 74181

== ENCOUNTER → 2024-05-20 10:27 | Outpatient (CLI) | payer MEDICARE, OTHER, SELFPAY ==
[2024-05-20 12:35] LABS: Add Manual Diff / Slide Review NO; Basophils Absolute Auto 0 /uL (0-100); Basophils Percent Auto 0.7 % (0-2); Eosinophils Absolute Auto 300 /uL (0-450); Eosinophils Percent Auto 4.9 % (2-4); Hemoglobin 12.6 g/dL (13.5-17.5); Lymphocytes Absolute Auto 1400 /uL (1100-4500); Lymphocytes Percent Auto 22.9 % (25-40); Mean Corpuscular HGB Conc 33.3 % (30-36); Monocytes Absolute Auto 500 /uL (0-900); Monocytes Percent Auto 8.5 % (3-14); Neutrophils Absolute Auto 3800 /uL (1500-7000); Platelet Count 152 X10^3/uL (150-400); Red Blood Cell Count 4.08 X10^6/uL (4.5-5.9); Red Cell Distribution Width 13.7 % (11.6-14.8)
[2024-05-20 12:39] LABS: Hemoglobin A1C% w Est Avg Glu 7.9 % (4.0-6.0)
[2024-05-20 12:50] LABS: Alanine Aminotransferase 35 IU/L (<50); Albumin Globulin Ratio 1.3 (1.0-2.8); Alkaline Phosphatase 77 U/L (38-126); Aspartate Aminotransferase 32 IU/L (17-59); BUN Creatinine Ratio 15.5 (6-22); Blood Urea Nitrogen 37 mg/dL (9-20); Calcium 9.6 mg/dL (8.4-10.2); Carbon Dioxide 24 mmol/L (22-32); Chloride 109 mmol/L (98-107); Cholesterol 118 mg/dL (140-199); Estimated Glomerular Filt Rate 28 mL/min (>60); Globulin 3.1 g/dL (1.7-4.1); Glucose 143 mg/dL (80-110); HDL Cholesterol 33 mg/dL (40-60); HEMOLYSIS < 15 (0-50); LDL Cholesterol Calculated 38 mg/dL (<100); Potassium 5.2 mmol/L (3.4-5.1); Sodium 140 mmol/L (137-145); Total Protein 7.1 g/dL (6.3-8.2); Triglycerides 236 mg/dL (35-150)
[2024-05-20 14:21] LABS: Creatinine Urine Random 105.63 mg/dL
[2024-05-20 14:37] LABS: Vitamin D 25 Hydroxy (D3) 87.2 ng/mL (30.0-100.0)
== END ==
LOC: LAB 10:28
PROVIDERS: PCP Family Medicine; Referring Provider Family Medicine; Visit Provider Family Medicine
DX: E11.65 Type 2 diabetes mellitus with hyperglycemia (principal); Z79.4 Long term (current) use of insulin; N18.32 Chronic kidney disease, stage 3b; D64.9 Anemia, unspecified; I12.9 Hypertensive chronic kidney disease with stage 1 through stage 4 chronic kidney disease, or unspecified chronic kidney disease
CPT/HCPCS: 36415; 80053; 80061; 82043; 82306; 82570; 83036; 85025

== ENCOUNTER → 2024-08-20 09:14 | Outpatient (CLI) | payer MEDICARE, OTHER, SELFPAY ==
[2024-08-20 10:46] LABS: Creatinine Urine Random 76.81 mg/dL
[2024-08-20 12:38] LABS: Microalbumin Urine Random 62.3 mg/dL (0-1.6)
[2024-08-20 13:53] LABS: Alanine Aminotransferase 37 IU/L (<50); Albumin 3.6 g/dL (3.5-5.0); Albumin Globulin Ratio 1.3 (1.0-2.8); Alkaline Phosphatase 92 U/L (38-126); Aspartate Aminotransferase 31 IU/L (17-59); BUN Creatinine Ratio 14.8 (6-22); Bilirubin Total 0.6 mg/dL (0.2-1.3); Blood Urea Nitrogen 33 mg/dL (9-20); Calcium 9.2 mg/dL (8.4-10.2); Carbon Dioxide 24 mmol/L (22-32); Chloride 109 mmol/L (98-107); Estimated Glomerular Filt Rate 31 mL/min (>60); Globulin 2.7 g/dL (1.7-4.1); Glucose 102 mg/dL (80-110); HEMOLYSIS < 15 (0-50); Potassium 4.6 mmol/L (3.4-5.1); Sodium 139 mmol/L (137-145); Total Protein 6.3 g/dL (6.3-8.2)
[2024-08-20 16:50] LABS: Hemoglobin A1C% w Est Avg Glu 7.5 % (4.0-6.0)
== END ==
LOC: LAB 09:16
PROVIDERS: PCP Family Medicine; Referring Provider Family Medicine; Visit Provider Family Medicine
DX: E11.65 Type 2 diabetes mellitus with hyperglycemia (principal); Z79.4 Long term (current) use of insulin
CPT/HCPCS: 36415; 80053; 82043; 82570; 83036

== ENCOUNTER → 2024-11-12 08:55 | Outpatient (CLI) | payer MEDICARE, OTHER, SELFPAY ==
[2024-11-12 11:03] LABS: Alanine Aminotransferase 33 IU/L (<50); Albumin Globulin Ratio 1.5 (1.0-2.8); Alkaline Phosphatase 84 U/L (38-126); Aspartate Aminotransferase 30 IU/L (17-59); BUN Creatinine Ratio 15.5 (6-22); Blood Urea Nitrogen 34 mg/dL (9-20); Calcium 9.7 mg/dL (8.4-10.2); Carbon Dioxide 24 mmol/L (22-32); Chloride 109 mmol/L (98-107); Estimated Glomerular Filt Rate 31 mL/min (>60); Globulin 2.7 g/dL (1.7-4.1); Glucose 108 mg/dL (70-99); HEMOLYSIS < 15 (0-50); Potassium 4.8 mmol/L (3.4-5.1); Sodium 141 mmol/L (137-145); Total Protein 6.7 g/dL (6.3-8.2)
[2024-11-12 11:04] LABS: Hemoglobin A1C% w Est Avg Glu 7.5 % (4.0-6.0)
== END ==
PROVIDERS: PCP Family Medicine; Referring Provider Family Medicine; Visit Provider Family Medicine
DX: E11.65 Type 2 diabetes mellitus with hyperglycemia (principal); N18.9 Chronic kidney disease, unspecified; Z79.4 Long term (current) use of insulin
CPT/HCPCS: 36415; 80053; 82043; 82570; 83036

== ENCOUNTER → 2024-12-22 09:46 | Outpatient (CLI) | payer MEDICARE, OTHER, SELFPAY ==
[2024-12-22 11:05] LABS: Creatinine Urine Random 80.23 mg/dL
[2024-12-22 11:10] LABS: Prostate Specific Antigen Scrn 0.955 ng/mL (0.1-4.0)
[2024-12-22 11:27] LABS: Microalbumin Urine Random 41.1 mg/dL (0-1.6)
[2024-12-23 14:36] LABS: Fecal Immunochemical Test Negative (Negative)
== END ==
PROVIDERS: PCP Family Medicine; Referring Provider Family Medicine; Visit Provider Family Medicine
DX: Z12.5 Encounter for screening for malignant neoplasm of prostate (principal); Z12.11 Encounter for screening for malignant neoplasm of colon; N18.9 Chronic kidney disease, unspecified
CPT/HCPCS: 36415; 82043; 82274; 82570; G0103

== ENCOUNTER → 2025-06-12 10:02 | Outpatient (CLI) | payer MEDICARE, OTHER, SELFPAY ==
[2025-06-12 11:35] LABS: Hemoglobin A1C% w Est Avg Glu 7.0 % (4.0-6.0)
[2025-06-12 12:05] LABS: Alanine Aminotransferase 28 IU/L (<50); Albumin 3.9 g/dL (3.5-5.0); Albumin Globulin Ratio 1.3 (1.0-2.8); Alkaline Phosphatase 92 U/L (38-126); Blood Urea Nitrogen 33 mg/dL (9-20); Calcium 9.4 mg/dL (8.4-10.2); Carbon Dioxide 23 mmol/L (22-32); Chloride 109 mmol/L (98-107); Estimated Glomerular Filt Rate 31 mL/min (>60); Globulin 3.0 g/dL (1.7-4.1); Glucose 151 mg/dL (70-99); HEMOLYSIS < 15 (0-50); Potassium 4.8 mmol/L (3.4-5.1); Sodium 141 mmol/L (137-145); Total Protein 6.9 g/dL (6.3-8.2)
[2025-06-12 12:11] LABS: Microalbumi Creatinin Ratio Ur 798.0 ug/mg CR (<30)
== END ==
PROVIDERS: PCP Family Medicine; Referring Provider Family Medicine; Visit Provider Family Medicine
DX: E11.65 Type 2 diabetes mellitus with hyperglycemia (principal); Z79.4 Long term (current) use of insulin
CPT/HCPCS: 36415; 80053; 82043; 82570; 83036